=== PATIENT | female | born 1990 | race American Indian/Alaskan Native ===

== ENCOUNTER 2017-03-30 22:00 | Emergency (ER) | payer OTHER ==
[2017-03-30] MEDS ORDERED: ZOFRAN IV ONE (22:24)
[2017-03-30] MEDS ORDERED: ACTIDOSE SORBITOL PO ONE (22:24)
[2017-03-30] MEDS ORDERED: NACL 0.9% 1000 ML 1,000 ML IV ONE (22:24)
--- NOTE | 2017-03-30 22:26 | Emergency Department Report ---
History of Present Illness - General Chief Complaint: Overdose Stated Complaint: SUICIDE ATTEMPT Time Seen by Provider: 03/30/17 22:16 Source: EMS Mode of arrival: Stretcher Limitations: No Limitations - History of Present Illness Initial Comments: This is a 26-year-old female who is brought in by EMS due to overdose. I do not have much history on her at this point. I understand that she overdosed on diphenhydramine 25 mg tablets unknown quantity. She has a bottle that had a total of 20 tablets that were prescribed. She also has a bottle of ibuprofen PM. This is empty. From what I understand she took the ibuprofen PM as well as the diphenhydramine. I Traylor this was due to a suicidal gesture. Patient is not willing to talk to me at this point. She is awake and looking around. And does appear to understand what is going on but is electing not discuss anything with me at this time. ED caveat is taken for nonparticipation. Intent: unwilling to say - Related Data Home Medications Medication Instructions Recorded Confirmed Last Taken No Known Home Medications [No 03/31/17 03/31/17 Unknown Reported Home Medications] Allergies Allergy/AdvReac Type Severity Reaction Status Date / Time No Known Allergies Allergy Unverified 03/30/17 22:08 ED Review of Systems ROS: Stated complaint: SUICIDE ATTEMPT Other details as noted in HPI Comment: Unobtainable due to pts medical conditions ED Past Medical Hx - Medications Home Medications: Home Medications Medication Instructions Recorded Confirmed Last Taken Type No Known Home Medications [No 03/31/17 03/31/17 Unknown History Reported Home Medications] ED Physical Exam - General Limitations: No Limitations General appearance: alert, in no apparent distress, other (tearful) - Head Head exam: Present: atraumatic, normocephalic - Eye Eye exam: Present: normal appearance, PERRL, EOMI. Absent: scleral icterus - ENT ENT exam: Present: normal exam, normal orophraynx, mucous membranes moist - Neck Neck exam: Present: normal inspection. Absent: tenderness, lymphadenopathy - Respiratory Respiratory exam: Present: normal lung sounds bilaterally. Absent: respiratory distress, wheezes, rales - Cardiovascular Cardiovascular Exam: Present: regular rate, normal rhythm. Absent: systolic murmur, diastolic murmur, rubs, gallop - GI/Abdominal GI/Abdominal exam: Present: soft, normal bowel sounds. Absent: tenderness, guarding - Extremities Exam Extremities exam: Present: normal inspection. Absent: tenderness, pedal edema, calf tenderness - Back Exam Back exam: Present: normal inspection. Absent: tenderness, CVA tenderness (R), CVA tenderness (L) - Neurological Exam Neurological exam: Present: other (eyes open. Appears alert. Tracks me with her eyes. She does not give any verbal responses whatsoever however. She does move all 4 extremities spontaneously.) - Psychiatric Psychiatric exam: Present: normal affect, normal mood - Skin Skin exam: Present: warm, dry, intact, normal color. Absent: rash ED Course Vital Signs 03/30/17 03/31/17 03/31/17 22:08 00:23 04:35 Temperature 99 F Pulse Rate 82 83 96 H Respiratory 13 18 16 Rate Blood Pressure 143/91 132/89 131/86 [Right] O2 Sat by Pulse 100 100 100 Oximetry - Reevaluation(s) Reevaluation #1: 03/30/17 22:35 Asiya Capps (Sister) [phone] Reevaluation #2: 03/30/17 22:56 ECG at 2246 with sinus rhythm at 71 bpm with a normal [place] and QRS. Does have right axis deviation otherwise unremarkable. Normal QT is noted. Reevaluation #3: 03/31/17 05:18 Patient continues to be minimally verbal with me. She has been speaking more with the nurse. She does indicate to the nurse that she did not take anything but for the ibuprofen PM as well as the Benadryl. She does not give a specific reason why she took the medications. There have been sisters who have called from [place] where the patient was living up until a month ago. They were not aware of any specific problems. I have the patient on 1013. Hemodynamically she is stable. Medically she is cleared at this time. Has been greater than 8 hours since ingestion and she continues to be appropriate. There is no prolongation or QT on ECG. She has not had any vomiting of blood. She does indicate some epigastric discomfort. Medically clear at this time. Awaiting placement and crisis evaluation. ED Medical Decision Making - Lab Data Result diagrams: 03/30/17 Unknown 03/30/17 22:09 Critical care attestation.: If time is entered above; I have spent that time in minutes in the direct care of this critically ill patient, excluding procedure time. ED Disposition Clinical Impression: Overdose Qualifiers: Encounter type: initial encounter Injury intent: intentional self-harm Qualified Code(s): T50.902A - Poisoning by unspecified drugs, medicaments and biological substances, intentional self-harm, initial encounter Suicide attempt by drug ingestion Qualifiers: Encounter type: initial encounter Qualified Code(s): T50.902A - Poisoning by unspecified drugs, medicaments and biological substances, intentional self-harm , initial encounter Disposition: DC/TX PSY HOSP/PSY UNIT Is pt being admited?: No Does the pt Need Aspirin: No Condition: Stable Referrals: PRIMARY CARE, [Primary Care Provider] - 3-5 Days Time of Disposition: 05:22
[2017-03-30 22:51] LABS: Basophils % (Auto) 0.9 % (0.0-1.8); Eosinophils % (Auto) 1.2 % (0.0-4.3); Hematocrit 37.9 % (30.3-42.9); Hemoglobin 12.2 gm/dl (10.1-14.3); Mean Corpuscular HGB Conc 32 % (30-34); Mean Corpuscular Volume 79 fl (79-97); Platelet Count 193 K/mm3 (140-440); Red Blood Count 4.81 M/mm3 (3.65-5.03); Red Cell Distribution Width 13.9 % (13.2-15.2); White Blood Count 7.5 K/mm3 (4.5-11.0)
[2017-03-30 23:02] LABS: Anion Gap 18 mmol/L; Blood Urea Nitrogen 10 mg/dL (7-17); Carbon Dioxide 22 mmol/L (22-30); Chloride 101.3 mmol/L (98-107); Glucose 92 mg/dL (65-100); Potassium 3.7 mmol/L (3.6-5.0); Sodium 138 mmol/L (137-145)
[2017-03-30 23:03] LABS: Mean Corpuscular Hemoglobin 26 pg (28-32)
[2017-03-31 00:37] LABS: Urine Drugs of Abuse Note Disclamer
[2017-03-31 00:45] LABS: Bilirubin,Urine NEG (Negative); Blood,Urine LG (Negative); Ketones,Urine NEG (Negative); Leukocyte Esterase,Urine NEG (Negative); Mucus,Urine FEW /HPF; Nitrite,Urine NEG (Negative); Protein,Urine <15 mg/dL mg/dL (Negative); Urobilinogen,Urine < 2.0 mg/dL (<2.0); WBC,Urine < 1.0 /HPF (0.0-6.0)
[2017-03-31] MEDS ORDERED: ALUM-MAG HYDROX-SIMETH 200-200-20MG/5ML PO PRN (05:23)
[2017-03-31] MEDS ORDERED: TYLENOL PO PRN (05:23)
--- NOTE | 2017-03-31 10:55 | Consultation ---
History of Present Illness - Reason for Consult Consult date: 03/31/17 Reason for consult: Mental Health Evaluation Requesting physician: ИРИНА TAPIA - Chief Complaint Chief complaint: "I am better now" - History of Present Psychiatric Illness This is a 26-year-old female who is brought in by EMS due to overdose. Today patient is calm and cooperative during assessment. Patient is guarded and elusive doing our conversation when I asked her questions. She admit to taking "1 Benadryl" and "A couple Ibuprofen." She would not answer why she took the pills. She did state that she miss her aunt who a couple months ago. She stated, "Sometimes I wish I could join her." The patient speculated that her friend got a rep from her apartment complex to let her into her residence. This was verified by her sister Christie Ronquillo ([phone]). The patient said she was found in the closet listening to music. Her sister stated that the patient called a friend and said "I don't feel well." The patient denies SI/HI's , AVH's, sleep disturbance, or a poor appetite. She rate her depression 4/10, with 10 being the worse. She stated this is her first time taking pills and never tried to injury herself in the past. She stated that she was not trying to harm herself. She denies recreational drug use or alcohol consumption. She stated that she saw a therapist in the past for depression. Medications and Allergies Allergies Allergy/AdvReac Type Severity Reaction Status Date / Time No Known Allergies Allergy Unverified 03/30/17 22:08 Home Medications Medication Instructions Recorded Confirmed Last Taken Type No Known Home Medications [No 03/31/17 03/31/17 Unknown History Reported Home Medications] Active Meds: Active Medications Acetaminophen (Tylenol) 650 mg PO Q4HR PRN PRN Reason: Pain MILD(1-3)/Fever >100.5/BROWNING Al Hydrox/Mg Hydrox/Simethicone (Alum-Mag Hydrox-Simeth [phone]/5ml) 30 ml PO Q4HR PRN PRN Reason: Indigestion Past psychiatric history - Past Medical History Past Medical History: No medical history Past Surgical History: No surgical history - past Psychiatric treatment and history Psych: Anxiety psychiatric treatment history: Saw a therapist in [place]. Sister has depression. - Social History Social history: Lives alone ([employer] graduate, just moved here from [place] a month ago) Mental Status Exam - Vital signs Last Vital Signs Temp 99 F 03/30/17 22:08 Pulse 87 03/31/17 08:32 Resp 16 03/31/17 08:32 BP 120/79 03/31/17 08:32 Pulse Ox 99 03/31/17 08:32 - Exam Narrative exam: ROS (-) psychosis MSE: Appearance: calm, cooperative Behavior: good eye contact, guarded Speech: low rate and tone Mood: "I am okay" Affect: mood congruent Thought Process: circumstantial Thought Content: denies SI/HI's and AVH's Motor Activity: sitting up in bed Cognition: a/o x 3 Insight: limited Judgment: poor Results Result Diagrams: 03/30/17 Unknown 03/30/17 22:09 Abnormal lab results 03/30/17 03/31/17 Range/Units Unknown 00:20 MCH 26 L (28-32) pg Salicylates < 0.3 L (2.8-20.0) mg/dL All other labs normal. Assessment and Plan Assessment and plan: Impression: Unspecified Mood DO. This is a 26-year-old female who is brought in by EMS due to overdose. Today patient is calm and cooperative during assessment. Patient is guarded and elusive doing our conversation when I asked her questions. She admit to taking "1 Benadryl" and "A couple Ibuprofen." She would not answer why she took the pills. She did state that she miss her aunt who pasted away a couple months ago. She stated, "Sometimes I wish I could join her." Patient does not seem to understand the severity of her actions. DD: R/O Bipolar, MDD Recommendation/Plan: Continue 1013 with placement to inpatient psy services. Start Celexa 10 mg for depression. Discussed possible suicidality and medication induced sekou with patient reference antidepressants.
[2017-03-31] MEDS: celeXA PO SCH (17:14)
[2017-04-01] MEDS: celeXA PO SCH (10:57)
--- NOTE | 2017-04-01 11:33 | Progress Note ---
Subjective - Reason for Consult Consult date: 04/01/17 Reason for consult: psychiatric follow up - Chief Complaint Chief complaint: "I'm ok" This is a 26-year-old female who is brought in by EMS due to overdose, possibly on benadryl and ibuprofen. Today patient is calm and cooperative during assessment. Patient is guarded and answered questions with minimal response. The patient denies SI/HI's, AVH's, sleep disturbance, or a poor appetite. No side effects from Celexa reported. Waiting on inpatient placement. Mental Status Exam - Vital signs Last Vital Signs Temp 99.0 F 04/01/17 08:32 Pulse 77 04/01/17 08:32 Resp 14 04/01/17 08:32 BP 118/83 04/01/17 08:32 Pulse Ox 99 04/01/17 08:32 Assessment and Plan Impression: Major depressive disorder suicidal gesture vs. overdose She requires stabilization for acute depressive symptoms and risk of harm to self. Recommendation: Continue Celexa 10mg daily for depression. 1013 continued, transfer to inpatient psych hospital
--- NOTE | 2017-04-02 09:13 | Progress Note ---
Subjective - Reason for Consult Consult date: 04/02/17 Reason for consult: Psychiatry Follow-up - Chief Complaint Chief complaint: "When will I be leaving" This is a 26-year-old female who is brought in by EMS due to overdose, possibly on benadryl and ibuprofen. Today patient is adamant about leaving and wanting to go back to work. She stated, "I wasn't trying ti kill myself." Patient is still guarded when I ask her questions about why she took the pills. She denies SI/HI's, AVH's, sleep disturbance, or a poor appetite. No side effects from Celexa per the patient. Mental Status Exam - Vital signs Last Vital Signs Temp 99.3 F 04/01/17 19:25 Pulse 50 L 04/01/17 19:25 Resp 16 04/01/17 19:25 BP 139/79 04/01/17 19:25 Pulse Ox 96 04/01/17 19:25 - Exam Narrative exam: MSE: Appearance: calm, cooperative Behavior: good eye contact, guarded Speech: low rate and tone Mood: "I don't feel bad" Affect: mood congruent Thought Process: circumstantial Thought Content: denies SI/HI's and AVH's Motor Activity: sitting up in bed Cognition: a/o x 3 Insight: poor Judgment: poor Assessment and Plan Impression: This is a 26-year-old female who is brought in by EMS due to overdose, possibly on benadryl and ibuprofen. Today patient is adamant about leaving and wanting to go back to work. She stated, "I wasn't trying to kill myself." Patient is still guarded when I ask her questions about why she took the pills. Recommendation/Plan: Continue 1013 with placement to [facility] pending transport time. Continue Celexa 10 mg for depression. Discussed possible suicidality and medication induced sekou with patient reference antidepressants.
[2017-04-02] MEDS: celeXA PO SCH (11:10)
[2017-04-03 09:18] VITALS: BP 133/86
== END 2017-04-03 09:28 ==
LOC: EEVIPCON 22:00 → ED 22:00
DX: T45.0X2A Poisoning by antiallergic and antiemetic drugs, intentional self-harm, initial encounter (principal); Y92.89 Other specified places as the place of occurrence of the external cause
CPT/HCPCS: 36415; 80048; 80307; 81001; 81025; 85025; 93005; 93010; 96361; 96374; 99285; G0480; J2405; J7030; 80320